=== PATIENT | female | born 1935 | race Caucasian/White ===

== ENCOUNTER 2017-04-07 18:41 | Inpatient (IN) | payer SELFPAY ==
[~2017-04-07] VITALS: Ht 152.4 cm; Wt 49.0 kg
[2017-04-07] MEDS ORDERED: ATEN25TA PO (19:19)
[2017-04-07] MEDS ORDERED: PANT40TA2 PO (19:19)
[2017-04-07] MEDS ORDERED: LABETALOL HCL 100 MG/20 ML VIAL IV STA (20:24)
[2017-04-07] MEDS ORDERED: ONDANSETRON 4MG/2ML VIAL (J2405) IV ONE (20:30)
[2017-04-07] MEDS ORDERED: NS 1,000 ML IV SCH ×2 (20:30→21:58)
[2017-04-07 20:50] LABS: MEAN CORPUSCULAR HEMOGLOBIN 29.6 pg (27.0-33.0); MEAN CORPUSCULAR HGB CONC 32.7 g/dl (32.0-36.5); MEAN CORPUSCULAR VOLUME 90.5 fl (80.0-96.0); PLATELET COUNT, AUTOMATED 239 10^3/uL (150-450); RED CELL DISTRIBUTION WIDTH 13.3 % (11.5-14.5)
[2017-04-07 21:01] LABS: INR 0.97
[2017-04-07] MEDS ORDERED: ASPI1TAB PO (21:04)
[2017-04-07 21:09] LABS: ANION GAP 10 MEQ/L (8-16); BLOOD UREA NITROGEN 8 MG/DL (7-18); CALCIUM LEVEL 9.2 MG/DL (8.8-10.2); CARBON DIOXIDE LEVEL 27 MEQ/L (21-32); CHLORIDE LEVEL 108 MEQ/L (98-107); CREATININE FOR GFR 0.63 MG/DL (0.55-1.02); GLOMERULAR FILTRATION RATE > 60.0 (>32); GLUCOSE, FASTING 103 MG/DL (83-110); POTASSIUM SERUM 3.6 MEQ/L (3.5-5.1); SODIUM LEVEL 145 MEQ/L (136-145)
[2017-04-07] MEDS ORDERED: ONDANSETRON 4MG/2ML VIAL (J2405) IV PRN (22:00)
[2017-04-07] MEDS: hydrALAZINE INJ 20 MG/ML VIAL IV SCH (22:00)
[2017-04-07] MEDS ORDERED: MORPHINE 2 MG/ML 1ML SYRINGE IV PRN (22:00)
[2017-04-07] MEDS ORDERED: METOCLOPRAMIDE INJ 10MG/2ML VIAL (J2765) As Ordered ONE (22:29)
[2017-04-07] MEDS ORDERED: MORPHINE 2 MG/ML 1ML SYRINGE As Ordered ONE (22:29)
[2017-04-07] MEDS ORDERED: METOCLOPRAMIDE INJ 10MG/2ML VIAL (J2765) IV ONE (23:00)
[2017-04-07 23:40] VITALS: BP 211/90
[2017-04-07 23:50] VITALS: BP 156/68
--- NOTE | 2017-04-07 23:55 | HPE ---
DATE OF ADMISSION: 04/07/2017 PRIMARY CARE PROVIDER: Max Mcdaniels. HISTORY OF PRESENT ILLNESS: This patient is an 81-year-old female with a past medical history significant for hypertension, migraine, depression, esophageal mass, presented to [facility] on 04/07/2017 for worsening dysphagia. Patient stated for the past few weeks she has been having difficulty with solids and she tried to tolerate liquids; however, in the past few days she cannot tolerate the liquids anymore because of significant pain during the swallowing. Whenever she tried to drink the liquid she would feel the pain and she would throw up right away. Patient stated to have a 20-pound weight loss in the last month. Possibly intermittent night sweats. No fever. No chills. Patient did have a recent hospitalization in [facility] in [place]. Endoscopy was performed and dilatation was performed according to the chart. Biopsy was obtained and patient was discharged home. Later, per the primary care provider notes, the esophagogastroduodenoscopy (EGD) report shows significant ulceration, inflammation of the esophagus along with a mass, which was biopsied. The pathology report from [place] shows benign extensive esophagitis with granular tissues, but no malignancy. Due to the persistent worsening of the symptoms, patient was instructed by the primary care provider to come to [facility] for further evaluation. PAST MEDICAL HISTORY: 1. Chronic dysphagia status post upper endoscopy in January 2017. 2. Hypertension. 3. Migraine headache. 4. Arthritis. 5. Depression. PAST SURGICAL HISTORY: 1. (C) section in 1968. 2. Lymph node removal under the right armpit 2007. SOCIAL HISTORY: Denies smoking. Denies alcohol use. Denies recreational drug use. The patient is DO NOT RESUSCITATE/DO NOT INTUBATE. REVIEW OF SYSTEMS: GENERAL: No fever. No chills. Positive 20-pound weight loss in the last month. Intermittent night sweats. HEENT: No vision changes. No auditory changes. CARDIOVASCULAR: No chest pain. No palpitations. LUNGS: No difficulty breathing. No cough. GASTROINTESTINAL: Patient complains of dysphagia in the past few weeks. In the last 2 days, symptoms have progressively worsened. MUSCULOSKELETAL: Chronic arthritis and chronic back pain. No new muscle pain. NEUROLOGICAL: Denied any numbness or tingling. OBJECTIVE: VITAL SIGNS: Temperature 98.4, pulse 74, respirations 16, blood pressure 172/74, pulse oximetry is 95% in room air. GENERAL: Mild to moderate distress secondary to persistent dysphagia. Alert and oriented times three. HEENT: Normocephalic, atraumatic. Extraocular motor grossly intact. CARDIOVASCULAR: Positive S1, S2, regular rate. LUNGS: Clear to auscultation bilaterally. ABDOMEN: Tenderness to palpation throughout the whole sternum and also the right lower abdomen. Bowel sounds present. No rebound. EXTREMITIES: No edema. No cyanosis. LABORATORY DATA: WBC 8, hemoglobin 14.7, hematocrit 45, platelet count is 239. Sodium is 145, potassium 3.6, chloride 108, carbon dioxide 27, BUN 8, creatinine 0.63, GFR greater than 60, fasting glucose 103, calcium 9.2. PT 12.9, INR 0.97. ASSESSMENT AND PLAN: 1. Dysphagia. Patient is not able to tolerate oral solids. Patient will be admitted to progressive care unit (PCU) under inpatient status. Gastrointestinal (GI) specialist has been consulted. Patient may benefit from repeated esophagogastroduodenoscopy (EGD). Currently, patient will be placed on nothing by mouth. Continued on fluid resuscitation. Will try to eliminate all the oral medications due to the oral intolerance. 2. Patient does have a history of esophageal mass. Previous biopsy done in [place] shows benign extensive esophagitis and granulation tissue, but no malignancy. 3. Hypertensive urgency. Possibly due to severe pain and from dysphagia. Patient has persistent nausea, vomiting. Patient will be given intravenous (IV) morphine for pain control. Give IV Zofran for nausea, vomiting control. Will continue to follow the blood pressure. Patient will have IV hydralazine for hypertensive urgency. 4. Depression. Not on home medications. 5. Deep venous thrombosis (DVT) prophylaxis. On heparin.
[2017-04-08] MEDS: PANTOPRAZOLE 40MG INJ (PROTONIX) (C9113) IV SCH ×3 (00:11→22:06)
[2017-04-08 04:00] VITALS: BP 151/68
[2017-04-08 05:18] LABS: MEAN CORPUSCULAR HEMOGLOBIN 29.8 pg (27.0-33.0); MEAN CORPUSCULAR HGB CONC 33.1 g/dl (32.0-36.5); MEAN CORPUSCULAR VOLUME 90.2 fl (80.0-96.0); PLATELET COUNT, AUTOMATED 194 10^3/uL (150-450); RED CELL DISTRIBUTION WIDTH 13.5 % (11.5-14.5); WHITE BLOOD COUNT 5.6 10^3/uL (4.0-10.0)
[2017-04-08 05:22] LABS: ANION GAP 11 MEQ/L (8-16); BLOOD UREA NITROGEN 7 MG/DL (7-18); CALCIUM LEVEL 8.1 MG/DL (8.8-10.2); CARBON DIOXIDE LEVEL 25 MEQ/L (21-32); CHLORIDE LEVEL 112 MEQ/L (98-107); CREATININE FOR GFR 0.49 MG/DL (0.55-1.02); GLOMERULAR FILTRATION RATE > 60.0 (>32); GLUCOSE, FASTING 117 MG/DL (83-110); MAGNESIUM LEVEL 2.1 MG/DL (1.8-2.4); POTASSIUM SERUM 3.3 MEQ/L (3.5-5.1); SODIUM LEVEL 148 MEQ/L (136-145)
[2017-04-08] MEDS: hydrALAZINE INJ 20 MG/ML VIAL IV SCH ×3 (06:00→21:59)
[2017-04-08] MEDS: HEPARIN SOD (PORCINE) 5000 UNITS/ML VIAL SC SCH ×3 (06:13→22:07)
--- NOTE | 2017-04-08 07:28 | REP ---
PA and lateral chest: There are no comparisons. Lung choi are hyperinflated. There are no infiltrates or effusions. There are two 4 mm lung nodules inferiorly on the left. Cardiac size is upper normal. The chanel, mediastinum, and bony thorax are unremarkable. Impression: Hyperinflation. Two lung nodules inferiorly on the left. No infiltrates or effusions. Signed by Trell Nick MD 04/08/2017 07:19 A
[2017-04-08 08:00] VITALS: BP 156/69
[2017-04-08] MEDS ORDERED: POTASSIUM CHLORIDE 10 MEQ SR TABLET PO ONE (08:15)
[2017-04-08] MEDS: KCL 40MEQ in NS 1000ML 1,000 ML IV SCH ×2 (10:50→19:57)
[2017-04-08 12:00] VITALS: BP 144/67
--- NOTE | 2017-04-08 15:15 | IPNPDOC ---
Text Note Date of Service The patient was seen on 04/08/17. NOTE Subjective: Patient states she has dysphagia to solids and liquids. No chest pain or palpitations. No shortness of breath. Had 1 episode of nausea and vomiting this morning. No abdominal pain. States she was in [place] a few months ago, where she had an EGD, however does not know any details about it. I have spoken to her primary care physician Dr. Dyer who notes that the patient had a total obstruction of her mid to lower esophagus, and there was a question whether she ever had stents placed in the region however she was dilated. Objective: Vitals: (see below) General: No acute distress, laying comfortably in bed. HEENT: Moist mucous membranes. Neck: No JVD or lymphadenopathy Cardiac: RRR, No murmurs Pulm: Clear to auscultation b/l. No wheezing, rhonchi Abd: NT/ND + BS Ext: No edema or cyanosis Labs (see below) Images: Assessment/Plan 1. Dysphagia to solids and liquids- certainly concerning for salvage on mass versus stricture. 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 Areas were biopsied with notable extensive esophagitis and granulation tissue however no new malignancy noted. We will continue IV fluids. GI consulted; will likely need repeat EGD. Continue PPI 2. Hypertensive urgency- resolved. On IV hydralazine 3. History of depression- follow-up outpatient. DVT prophy: Heparin subcutaneous VS,Fishbone, I+O VS, Fishbone, I+O Laboratory Tests 04/07/17 20:42 Red Blood Count 4.97, Mean Corpuscular Volume 90.5, Mean Corpuscular Hemoglobin 29.6, Mean Corpuscular Hemoglobin Concent 32.7, Red Cell Distribution Width 13.3 , Calcium Level 9.2 04/08/17 04:36 Red Blood Count 4.09, Mean Corpuscular Volume 90.2, Mean Corpuscular Hemoglobin 29.8, Mean Corpuscular Hemoglobin Concent 33.1, Red Cell Distribution Width 13.5 , Calcium Level 8.1 L Vital Signs Date Time Temp Pulse Resp B/P (MAP) Pulse Ox O2 Delivery O2 Flow Rate FiO2 04/08/17 14:50 144/67 04/08/17 12:00 99.0 77 18 94 Room Air I&O- Last 24 Hours up to 6 AM 04/09/17 06:00 Intake Total 0 ml Output Total 250 ml Balance -250 ml ANSHUL CASTILLO MD Apr 08, 2017 15:15
[2017-04-08 16:00] VITALS: BP_SYST 144; BP_SYST 170; BP_DIAS 69; BP_DIAS 70
[2017-04-08 20:00] VITALS: BP 146/94
[2017-04-09] VITALS (10 sets, daily range): BP systolic 121–182; BP diastolic 60–89
[2017-04-09] MEDS: hydrALAZINE INJ 20 MG/ML VIAL IV SCH ×5 (05:23→22:00)
[2017-04-09] MEDS: KCL 40MEQ in NS 1000ML 1,000 ML IV SCH ×2 (05:23→15:29)
[2017-04-09] MEDS: HEPARIN SOD (PORCINE) 5000 UNITS/ML VIAL SC SCH ×3 (05:25→21:19)
[2017-04-09 05:28] LABS: MEAN CORPUSCULAR HEMOGLOBIN 29.5 pg (27.0-33.0); MEAN CORPUSCULAR HGB CONC 32.8 g/dl (32.0-36.5); PLATELET COUNT, AUTOMATED 195 10^3/uL (150-450); RED CELL DISTRIBUTION WIDTH 13.4 % (11.5-14.5); WHITE BLOOD COUNT 8.2 10^3/uL (4.0-10.0)
[2017-04-09 05:43] LABS: ANION GAP 11 MEQ/L (8-16); BLOOD UREA NITROGEN 4 MG/DL (7-18); CALCIUM LEVEL 8.3 MG/DL (8.8-10.2); CARBON DIOXIDE LEVEL 23 MEQ/L (21-32); CHLORIDE LEVEL 108 MEQ/L (98-107); CREATININE FOR GFR 0.37 MG/DL (0.55-1.02); GLOMERULAR FILTRATION RATE > 60.0 (>32); GLUCOSE, FASTING 88 MG/DL (83-110); MAGNESIUM LEVEL 1.8 MG/DL (1.8-2.4); POTASSIUM SERUM 3.9 MEQ/L (3.5-5.1); SODIUM LEVEL 142 MEQ/L (136-145)
[2017-04-09] MEDS: PANTOPRAZOLE 40MG INJ (PROTONIX) (C9113) IV SCH ×2 (08:20→21:19)
[2017-04-09] MEDS ORDERED: PROPOFOL 500 MG/50 ML VIAL As Ordered ONE (13:17)
[2017-04-09] MEDS ORDERED: LIDOCAINE 2% INJ 100 MG/5 ML SDV (FOR ANES.) As Ordered ONE (13:17)
[2017-04-09] MEDS ORDERED: ESMOLOL INJ 100MG/10ML VIAL As Ordered ONE (13:28)
[2017-04-09] MEDS ORDERED: hydrALAZINE INJ 20 MG/ML VIAL As Ordered ONE (13:37)
--- NOTE | 2017-04-09 13:43 | ROOR ---
Patient Name: Justina White Procedure Date: 04/09/2017 1:15 PM Date of : 1935 Age: 81 Room: [facility] Gender: Female Note Status: Finalized Procedure: Upper GI endoscopy + Balloon Dilatation + Biopsies Indications: Dysphagia, Stenosis of the esophagus, Follow-up of esophageal stenosis, For therapy of esophageal stenosis Providers: Shubham Arita MD Referring MD: Max Dyer MD Requesting Provider: Medicines: Monitored Anesthesia Care Complications: No immediate complications. Procedure: Pre-Anesthesia Assessment: - The heart rate, respiratory rate, oxygen saturations, blood pressure, adequacy of pulmonary ventilation, and response to care were monitored throughout the procedure. The Endoscope was introduced through the mouth, and advanced to the second part of duodenum. The upper GI endoscopy was accomplished without difficulty. The patient tolerated the procedure well. Findings: The Z-line was irregular and was found 30 cm from the incisors. One benign-appearing, intrinsic stenosis was found 30 cm from the incisors. This stenosis was severe (stenosis; an endoscope cannot pass) and. The stenosis was traversed after dilation. A TTS dilator was passed through the scope. Dilation with a 6-7-8 mm balloon and an 8-9-10 mm balloon dilator was performed to 10 mm. No other significant abnormalities were identified in a careful examination of the stomach. The exam of the duodenum was otherwise normal. Severe esophagitis with bleeding was found. Biopsies were taken with a cold forceps for histology. Impression: - Z-line irregular, 30 cm from the incisors. - Benign-appearing esophageal stenosis. Dilated. - No specimens collected. - The examination was otherwise normal. Recommendation: - Return patient to [facility] for ongoing care. - Follow an antireflux regimen. - Continue present medications. - Await pathology results. - Telephone GI clinic for pathology results in 1 week. - The findings and recommendations were discussed with the patient's family. Shubham Arita MD Shubham Arita MD 04/09/2017 1:43:20 PM This report has been signed electronically. Number of Addenda: 0 Note Initiated On: 04/09/2017 1:15 PM Estimated Blood Loss: Estimated blood loss: none.
--- NOTE | 2017-04-09 14:48 | IPNPDOC ---
Text Note Date of Service The patient was seen on 04/09/17. NOTE Subjective: Pt denies CP/palpitations. No nausea/vomiting/abdominal pain. No acute changes overnight. Objective: Vitals: (see below) General: No acute distress, laying comfortably in bed. HEENT: Moist mucous membranes. Neck: No JVD or lymphadenopathy Cardiac: RRR, No murmurs Pulm: Clear to auscultation b/l. No wheezing, rhonchi Abd: NT/ND + BS Ext: No edema or cyanosis Labs (see below) Images: EGD 04/09/17 Impression: - Z-line irregular, 30 cm from the incisors. - Benign-appearing esophageal stenosis. Dilated. - No specimens collected. - The examination was otherwise normal. Recommendation: - Return patient to [facility] for ongoing care. - Follow an antireflux regimen. - Continue present medications. - Await pathology results. - Telephone GI clinic for pathology results in 1 week. - The findings and recommendations were discussed with the patient's family. Assessment/Plan 1. Dysphagia to solids and liquids secondary to benign-appearing esophageal stenosis which was dilated on 04/09 (HD see below)-We will continue IV fluids. Continue PPI. Appreciate Dr. Arita's input. 2. Hypertensive urgency- resolved. On IV hydralazine 3. History of depression- follow-up outpatient. DVT prophy: Heparin subcutaneous Plan to discharge patient is 24 hours if continues to improve. VS,Fishbone, I+O VS, Fishbone, I+O Laboratory Tests 04/09/17 05:01 Red Blood Count 4.30, Mean Corpuscular Volume 90.0, Mean Corpuscular Hemoglobin 29.5, Mean Corpuscular Hemoglobin Concent 32.8, Red Cell Distribution Width 13.4 , Calcium Level 8.3 L Vital Signs Date Time Temp Pulse Resp B/P (MAP) Pulse Ox O2 Delivery O2 Flow Rate FiO2 04/09/17 14:31 97.9 90 18 131/67 (88) 96 Room Air I&O- Last 24 Hours up to 6 AM 04/10/17 06:00 Intake Total 400 ml Output Total 600 ml Balance -200 ml ANSHUL CASTILLO MD Apr 09, 2017 14:48
[2017-04-09] MEDS: SUCRALFATE SUSP 1GM/10ML UD PO SCH ×2 (18:28→21:18)
[2017-04-09] MEDS: LANSOPRAZOLE SUSPENSION 30 MG/10 ML ORAL SYRINGE (FIRST-LANSOPRAZOLE) PO SCH (21:19)
[2017-04-10] MEDS: hydrALAZINE INJ 20 MG/ML VIAL IV SCH ×2 (02:00→05:43)
[2017-04-10] MEDS: KCL 40MEQ in NS 1000ML 1,000 ML IV SCH (03:08)
[2017-04-10 04:45] VITALS: BP 168/69
[2017-04-10 05:20] VITALS: BP 172/72
[2017-04-10] MEDS: HEPARIN SOD (PORCINE) 5000 UNITS/ML VIAL SC SCH ×2 (05:44→14:00)
[2017-04-10 05:58] LABS: MEAN CORPUSCULAR HEMOGLOBIN 30.1 pg (27.0-33.0); MEAN CORPUSCULAR HGB CONC 32.6 g/dl (32.0-36.5); MEAN CORPUSCULAR VOLUME 92.2 fl (80.0-96.0); PLATELET COUNT, AUTOMATED 183 10^3/uL (150-450); RED CELL DISTRIBUTION WIDTH 13.7 % (11.5-14.5); WHITE BLOOD COUNT 11.1 10^3/uL (4.0-10.0)
[2017-04-10 06:17] LABS: ANION GAP 10 MEQ/L (8-16); BLOOD UREA NITROGEN 7 MG/DL (7-18); CALCIUM LEVEL 8.1 MG/DL (8.8-10.2); CARBON DIOXIDE LEVEL 20 MEQ/L (21-32); CHLORIDE LEVEL 113 MEQ/L (98-107); CREATININE FOR GFR 0.48 MG/DL (0.55-1.02); GLOMERULAR FILTRATION RATE > 60.0 (>32); GLUCOSE, FASTING 99 MG/DL (83-110); MAGNESIUM LEVEL 1.9 MG/DL (1.8-2.4); POTASSIUM SERUM 4.4 MEQ/L (3.5-5.1); SODIUM LEVEL 143 MEQ/L (136-145)
[2017-04-10 08:00] VITALS: BP 137/55
[2017-04-10] MEDS: SUCRALFATE SUSP 1GM/10ML UD PO SCH ×2 (08:17→11:56)
[2017-04-10] MEDS ORDERED: hydrALAZINE INJ 20 MG/ML VIAL IV ONE (08:30)
[2017-04-10] MEDS ORDERED: amLODIPine 5 MG TAB PO SCH (09:00)
[2017-04-10 09:09] VITALS: BP 137/55
[2017-04-10] MEDS: PANTOPRAZOLE 40MG INJ (PROTONIX) (C9113) IV SCH (09:09)
[2017-04-10] MEDS: LANSOPRAZOLE SUSPENSION 30 MG/10 ML ORAL SYRINGE (FIRST-LANSOPRAZOLE) PO SCH (09:10)
[2017-04-10 11:45] VITALS: BP 119/50
[2017-04-10] MEDS ORDERED: SUCR10SS PO (12:05)
[2017-04-10] MEDS ORDERED: FIRS3SUS PO ×2 (12:05→15:13)
[2017-04-10] MEDS ORDERED: AMLO5TAB2 PO (12:05)
[2017-04-10] MEDS ORDERED: SUCR1TA PO (15:13)
--- NOTE | 2017-04-10 15:16 | DS.PDOC ---
Discharge Summary General Date of Admission Apr 07, 2017 at 21:58 Date of Discharge 04/10/17 Discharge Summary PROCEDURES PERFORMED DURING STAY: EGD ADMITTING/DISCHARGE DIAGNOSES: 1. Esophageal stenosis status post dilation 2. Severe esophagitis 3. Hypertensive urgency resolved 4. History of depression COMPLICATIONS/CHIEF COMPLAINT: Dysphagia HISTORY OF PRESENT ILLNESS/HOSPITAL COURSE: This is a 81-year-old female past medical history of esophageal mass/erosion status post dilation biopsy in [place] 2 months ago, who presents complaining of dysphagia. Patient complained of dysphagia to solids and liquids which was progressively worsening. She had an EGD on 04/09 which noted a benign-appearing esophageal stenosis as well as irregular Z line. The stenosis was dilated, and the Z line was biopsied. As for the patient's high blood pressure, the patient was started on amlodipine , and her blood pressure was adequately controlled. The patient is now hemodynamically stable, tolerating full liquid diet. Has spoken to Dr. Arita who recommends a blenderized diet with full liquids, and would like to see the patient in the office. Patient is hemodynamically stable and we discharged home. Patient is to call Dr. Arita's office in one week, to obtain biopsy results. I have also called the patient's primary care physician Dr. Dyer and updated him. He will be following with the patient shortly in his office. DISCHARGE MEDICATIONS: Please see below. ALLERGIES: Please see below. PHYSICAL EXAMINATION ON DISCHARGE: Vitals: (see below) General: No acute distress, laying comfortably in bed. HEENT: Moist mucous membranes. Neck: No JVD or lymphadenopathy Cardiac: RRR, No murmurs Pulm: Clear to auscultation b/l. No wheezing, rhonchi Abd: NT/ND + BS Ext: No edema or cyanosis LABORATORY DATA: Please see below. IMAGING: EGD 04/09/17 Impression: - Z-line irregular, 30 cm from the incisors. - Benign-appearing esophageal stenosis. Dilated. - No specimens collected. - The examination was otherwise normal. Recommendation: - Return patient to [facility] for ongoing care. - Follow an antireflux regimen. - Continue present medications. - Await pathology results. - Telephone GI clinic for pathology results in 1 week. - The findings and recommendations were discussed with the patient's family. PROGNOSIS: Fair ACTIVITY: As tolerated. DIET: Blenderized, full liquid diet DISCHARGE PLAN/DISPOSITION: Home DISCHARGE INSTRUCTIONS: 1. Follow-up with PCP and Dr. Arita in one to 2 weeks. Return to the ED if symptoms worsen. DISCHARGE CONDITION: Stable. TIME SPENT ON DISCHARGE: Greater than 30 minutes. Vital Signs/I&Os Vital Signs Date Time Temp Pulse Resp B/P (MAP) Pulse Ox O2 Delivery O2 Flow Rate FiO2 04/10/17 11:45 97.6 71 18 119/50 (73) 92 Room Air I&O- Last 24 Hours up to 6 AM 04/11/17 06:00 Intake Total 880 ml Balance 880 ml Laboratory Data Labs 24H Laboratory Tests 2 04/10/17 05:29: Nucleated Red Blood Cells % (auto) 0.0, Anion Gap 10, Glomerular Filtration Rate > 60.0, Blood Urea Nitrogen 7#, Creatinine 0.48L, Sodium Level 143, Potassium Level 4.4, Chloride Level 113H, Carbon Dioxide Level 20L, Calcium Level 8.1L, Magnesium Level 1.9 CBC/BMP Laboratory Tests 04/10/17 05:29 Red Blood Count 3.99 L, Mean Corpuscular Volume 92.2, Mean Corpuscular Hemoglobin 30.1, Mean Corpuscular Hemoglobin Concent 32.6, Red Cell Distribution Width 13.7, Calcium Level 8.1 L Discharge Medications Scheduled (First-Lansoprazole) 3 Mg/Ml Cinthya, 30 MG PO BID Amlodipine Besylate (Amlodipine Besylate) 5 Mg Tab, 5 MG PO DAILY Aspirin (Aspirin 81) 81 Mg Tab, 81 MG PO DAILY, (Reported) Sucralfate (Sucralfate) 1 Gm/10 Ml Cinthya, 1 GM PO ACHS Allergies Coded Allergies: No Known Allergies (Unverified , 04/07/17) ANSHUL CASTILLO MD Apr 10, 2017 15:16
== END 2017-04-10 16:28 | disposition home or self-care (01) | DRG 243 ==
LOC: M ED 18:41 → M ED INP 21:58 → M PCU 23:33
PROVIDERS: ADMIT Internal Medicine; ATTEND Internal Medicine
PROC: 0DB58ZX Excision of Esophagus, Via Natural or Artificial Opening Endoscopic, Diagnostic (ICD-10-PCS; 2017-04-09)
PROC: 0D758ZZ Dilation of Esophagus, Via Natural or Artificial Opening Endoscopic (ICD-10-PCS; principal; 2017-04-09 14:00)
DX: K22.2 Esophageal obstruction (principal); R13.10 Dysphagia, unspecified; I10 Essential (primary) hypertension; K20.8 Other esophagitis; F32.9 Major depressive disorder, single episode, unspecified; R11.2 Nausea with vomiting, unspecified; R63.4 Abnormal weight loss; Z79.82 Long term (current) use of aspirin; Z79.899 Other long term (current) drug therapy; I16.0 Hypertensive urgency

== ENCOUNTER 2017-05-22 14:14 | Emergency (ER) | payer SELFPAY | END 2017-05-22 18:37 | disposition home or self-care (01) | LOC: M ED 14:14 | DX: R13.10 Dysphagia, unspecified (principal); I10 Essential (primary) hypertension; F33.9 Major depressive disorder, recurrent, unspecified; K21.9 Gastro-esophageal reflux disease without esophagitis | CPT/HCPCS: 99282 ==

== ENCOUNTER → 2017-06-12 | Outpatient (CLI) | payer SELFPAY ==
[~2017-06-12] MED LIST: E-Z-GAS II EFFERVESCENT PACKET (SODIUM BICARB./CITRIC ACID/SIMETHICONE) As Ordered; E-Z-HD 98% w/w 340GM SUSP BTL As Ordered; E-Z-PAQUE 96% w/w SUSP 176GM BTL As Ordered
== END ==
LOC: M RAD 08:51
DX: R13.10 Dysphagia, unspecified (principal)

== ENCOUNTER 2017-06-25 11:42 | Day surgery (SDC) | payer SELFPAY ==
[2017-06-25] MEDS: NS 1,000 ML IV (12:13)
[2017-06-25] MEDS ORDERED: PROPOFOL 200 MG/20 ML VIAL As Ordered ×2 (13:21)
[2017-06-25] MEDS ORDERED: LABETALOL HCL 100 MG/20 ML VIAL As Ordered (13:21)
[2017-06-25] MEDS ORDERED: LIDOCAINE 2% INJ 100 MG/5 ML SDV (FOR ANES.) As Ordered (13:21)
== END 2017-06-25 15:13 | disposition home or self-care (01) ==
LOC: M OPP 11:42
DX: R13.10 Dysphagia, unspecified (principal); K22.2 Esophageal obstruction; R63.4 Abnormal weight loss; R63.0 Anorexia; K44.9 Diaphragmatic hernia without obstruction or gangrene; I10 Essential (primary) hypertension; M19.90 Unspecified osteoarthritis, unspecified site; M54.89 Other dorsalgia; F41.9 Anxiety disorder, unspecified; F32.9 Major depressive disorder, single episode, unspecified; R51 Headache; Z78.0 Asymptomatic menopausal state; Z79.82 Long term (current) use of aspirin; Z79.899 Other long term (current) drug therapy
CPT/HCPCS: 43249